=== PATIENT | female | born 1980 | race Caucasian/White ===

== ENCOUNTER 2020-01-13 17:56 | Emergency (ER) | payer OTHER ==
--- OUTSIDE RECORDS SUMMARY | 2020-01-13 18:17 | XMS ---
:1980 Author Organization [facility] Support Name Relationship Address Phone [facility] Unavailable [address] [place] [address] [place] [address] [facility] [address] Re-disclosure Warning The records that you are about to access may contain information from federally- assisted alcohol or drug abuse programs. If such information is present, then the following federally mandated warning applies: This information has been disclosed to you from records protected by federal confidentiality rules (42 CFR part 2). The federal rules prohibit you from making any further disclosure of this information unless further disclosure is expressly permitted by the written consent of the person to whom it pertains or as otherwise permitted by 42 CFR part 2. A general authorization for the release of medical or other information is NOT sufficient for this purpose. The Federal rules restrict any use of the information to criminally investigate or prosecute any alcohol or drug abuse patient.The records that you are about to access may contain highly sensitive health information, the redisclosure of which is protected by Article 27-F of the [facility] Public Health law. If you continue you may haveaccess to information: Regarding HIV / AIDS; Provided by facilities licensed or operated by the [facility] Office of Mental Health; or Provided by the [facility] Office for People With Developmental Disabilities. If such information is present, then the following [facility] mandated warning applies: This information has been disclosed to you from confidential records which are protected by state law. State law prohibits you from making any further disclosure of this information without the specific written consent of the person to whom it pertains, or as otherwise permitted by law. Any unauthorized further disclosure in violation of state law may result in a fine or chcf sentence or both. A general authorization for the release of medical or other information is NOT sufficient authorization for further disclosure. Insurance Providers Payer name Policy type Policy ID Covered Covered alliance party's Policy P melisa / Coverage alliance party ID relationship to [employer] ormation type [employer] ODD [id number] HEALTH PLANS
[2020-01-13 18:31] VITALS: TEMP 99; BMI 23.1
--- NOTE | 2020-01-13 18:32 | PDOC ---
History of Present Illness - General Chief Complaint: Blood Pressure Problem Stated Complaint: BLOOD PRESSURE PROBLEM Time Seen by Provider: 01/13/20 18:04 History Source: Patient Exam Limitations: No Limitations - History of Present Illness Initial Comments: 01/13/20 18:27 39 yo F h/o preeclampsia and migraines p/w elevated BP (SBP ~160 at home today). 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 Reports she has had a migraine for jaimie past 3 days, similar to her usual migraines and nearly resolves with advil (last dose this AM and currently rates headache as 2/10). States she was working at her computer today and felt like her R eye was twitching and she felt a room spinning sensation. Symptoms resolved on their own after ~30 seconds and have not returned. Deneis worsening headache at that time or loss of vision or blurry or double vision. She then ate dinner but was still concerned after dinner so took her bp and when she saw it was elevated came to the ED. Denies CP, SOB, abdominal pain, lightheadedness or worsening headache at any point this afternoon/evening. States she is currently without any medical complaints. Past History - Medical History Allergies/Adverse Reactions: Allergies Allergy/AdvReac Type Severity Reaction Status Date / Time No Known Allergies Allergy Unverified 01/13/20 17:58 Home Medications: Ambulatory Orders Cetirizine HCl [Zyrtec] 10 mg PO DAILY 01/13/20 COPD: No Other medical history: PRE ECCLAMPSIA AND POST DELIVERY ECCLAMPITIC MIGRAINES - Reproductive History Is Patient Now?: No - Psycho-Social/Smoking History Smoking History: Never smoked Information on smoking cessation initiated: No - Substance Abuse Hx (Audit-C & DAST Scrn) How often the patient has a drink containing alcohol: 2-4 times / month Number of drinks the patient has on a typical day: 1 or 2 Score: In Men: 4 or > Positive; In Women: 3 or > Positive: 2 Screen Result (Pos requires Nsg. Audit-10AR): Negative In the last yr the pt used illegal drug/Rx for NonMed reason: No Score: Yes response is considered Positive: 0 Screen Result (Positive result requires Nsg. DAST-10): Negative Review of Systems - Review of Systems Able to Perform ROS?: Yes Comments:: 01/13/20 18:30 GENERAL/CONSTITUTIONAL: No fever or chills. No weakness. HEAD, EYES, EARS, NOSE AND THROAT: as per HPI CARDIOVASCULAR: No chest pain or shortness of breath. RESPIRATORY: No cough, wheezing, or hemoptysis. GASTROINTESTINAL: No nausea, vomiting, diarrhea or constipation. GENITOURINARY: No dysuria, frequency, or change in urination. MUSCULOSKELETAL: No joint or muscle swelling or pain. No neck or back pain. SKIN: No rash. NEUROLOGIC: No loss of consciousness, or change in strength/sensation. +minimal headache ENDOCRINE: No increased thirst. No abnormal weight change. HEMATOLOGIC/LYMPHATIC: No anemia, easy bleeding, or history of blood clots. ALLERGIC/IMMUNOLOGIC: No hives or skin allergy. *Physical Exam - Vital Signs Last Vital Signs Temp Pulse Resp BP Pulse Ox 99 F 100 H 16 175/105 H 100 01/13/20 17:57 01/13/20 17:57 01/13/20 17:57 01/13/20 17:57 01/13/20 17:57 - Physical Exam 01/13/20 18:31 GENERAL: Well appearing, in no acute distress HEENT: NCAT, conjunctiva not injected, MMM, EOMI, no nystagmus NECK: Normal ROM, supple LUNGS: CTAB. Good air entry. No wheezes, No Rhonchi and no crackles HEART: RRR, + s1 s2 ABDOMEN: Soft, nontender, normoactive bowel sounds. No guarding, no rebound. No masses BACK: no midline or paraspinal tenderness. No CVA tenderness. EXTREMITIES: Warm and well perfused. No LE edema. FROM. No clubbing or cyanosis. No cords, erythema, or tenderness NEUROLOGICAL: Aox3, Speech fluent, face symmetric, tongue/uvula midline. Sensation grossly intact to light touch. Ambulatory with steady gait. Strength intact. Negative rhomberg, finger to nose intact and symmetric b/l, No focal deficits. SKIN: Warm, dry, normal turgor, no rashes or lesions noted. Medical Decision Making - Medical Decision Making 01/13/20 18:32 39 yo F with elevated BP at home and in ED, currently asymptomatic but reported brief episode of eye twitching and vertigo like sensation now resolved, neurologically intact and visual acuity intact, symptoms possibly 2/2 prolonged exposure to screens vs. new progressive lenses vs. complex migraine (pt has h/o aura with her migraines). No preceding trauma or thunderclap headache to suggest ICH. Patient with asymptomatic hypertension. As per ACEP guidelines, no additional workup indicated at this time. Plan: -d/c with return precautions, recommend PMD and optho f/u This clinical encounter is taking place during a federal and state health care emergency attributable to the novel Berger Virus pandemic. The [facility] of the Department of Health and Human Services has declared, pursuant to the Public Health Service Act 319F-3 (42 U.S.C. 247d-6d), that a covered persons activities related to medical countermeasures against COVID-19 will be immune from liability under Federal and State law. Discharge - Discharge Information Problems reviewed: Yes Clinical Impression/Diagnosis: Hypertension Qualifiers: Hypertension type: unspecified Qualified Code(s): I10 - Essential (primary) hypertension Condition: Stable Disposition: HOME - Follow up/Referral Referrals: Yusuf Frias MD [Primary Care Provider] - - Patient Discharge Instructions Patient Printed Discharge Instructions: How to Monitor Your Blood Pressure at Home Additional Instructions: You should follow up with your PMD and optho. Return to the ED for new or worsening symptoms. - Post Discharge Activity
[2020-01-13 18:48] VITALS: BP 141/105; PULSE 91
== END 2020-01-13 18:50 | disposition home or self-care (01) ==
LOC: FER 17:56
DX: I10 Essential (primary) hypertension (principal)
CPT/HCPCS: 99282-25